=== PATIENT | male | born 1985 | race Caucasian/White ===

== ENCOUNTER 2019-07-18 08:22 | Day surgery (SDC) | payer BC ==
[~2019-07-18 08:22] MED LIST: Glycopyrrolate 0.2 MG/ML SDV ONE; Lactated Ringers 1,000 ML IV SCH; Lidocaine 2% 5 ML SDV ONE; Midazolam 1 MG/ML 2 ML SDV ONE; Neostigmine Methylsulfate 1 MG/ML 5 ML Syringe ONE; Ondansetron 4 MG/2 ML SDV ONE; Propofol 200 MG/20 ML SDV ONE; Rocuronium 100 MG/10 ML Syringe ONE; ceFAZolin 2 GM in Premix Bag 1 BAG IV ONE; fentaNYL 250 MCG/5 ML SDV ONE
[2019-07-18] MEDS ORDERED: Scopolamine 1.5 MG Transdermal Patch TRDERM PRN (08:46)
--- NOTE | 2019-07-18 08:50 | PCM.PREANE ---
Preanesthetic Assessment - Anesthesia/Transfusion/Family Hx Anesthesia History: Prior Anesthesia Without Reaction Family History of Anesthesia Reaction: No Transfusion History: No Prior Transfusion(s) - Review of Systems General: No Symptoms Pulmonary: No Symptoms Cardiovascular: No Symptoms Gastrointestinal: No Symptoms Neurological: No Symptoms Other: Reports: None - Physical Assessment Height: 5 ft 11 in Weight: 115.666 kg ASA Class: 1 (PMH: nonePLAN:) Mental Status: Alert & Oriented x3 Airway Class: Mallampati = 2 Dentition: Reports: Bridge (central maxillary incisors) ROM/Head Extension: Full Lungs: Clear to Auscultation, Normal Respiratory Effort Cardiovascular: Regular Rate, Regular Rhythm - Allergies Allergies/Adverse Reactions: Allergies Allergy/AdvReac Type Severity Reaction Status Date / Time sulfamethoxazole Allergy Anaphylactic Verified 07/17/19 16:27 [From Bactrim] Shock trimethoprim [From Bactrim] Allergy Anaphylactic Verified 07/17/19 16:27 Shock - Blood Blood Available: No - Anesthesia Plan Pre-Op Medication Ordered: None, Other (scop patch) - Acknowledgements Anesthesia Type Planned: General Anesthesia Pt an Appropriate Candidate for the Planned Anesthesia: Yes Alternatives and Risks of Anesthesia Discussed w Pt/Guardian: Yes Pt/Guardian Understands and Agrees with Anesthesia Plan: Yes Additional Comments: PMH: none PLAN: get, caution with dental bridge of central incisors PreAnesthesia Questionnaire HEENT History: Reports: Other (See Below) Other HEENT History: has upper permanent bridge Genitourinary History: Reports: Renal Calculus Other Genitourinary History: passed kidney stones Endocrine/Metabolic History: Reports: Obesity/BMI 30+ - Past Surgical History Head Surgeries/Procedures: Reports: None - SUBSTANCE USE Smoking Status *Q: Former Smoker Tobacco Use Within Last Twelve Months: Cigarettes Recreational Drug Use History: No - HOME MEDS Home Medications: Home Meds . [No Known Home Meds] 07/17/19 [History] - CURRENT (IN HOUSE) MEDS Current Meds: Current Medications Lactated Ringer's (Ringers, Lactated) 1,000 mls @ 125 mls/hr IV ASDIRECTED TOMER Scopolamine (Transderm-Scop) 1.5 mg TRDERM Q72H PRN PRN Reason: Nausea/Vomiting Discontinued Medications Fentanyl (Sublimaze) Confirm Administered Dose 250 mcg .ROUTE .STK-MED ONE Stop: 07/18/19 08:12 Glycopyrrolate (Robinul) Confirm Administered Dose 0.4 mg .ROUTE .STK-MED ONE Stop: 07/18/19 08:11 Cefazolin Sodium/Dextrose 2 gm (/ Premix) 50 mls @ 100 mls/hr IV ONETIME ONE Stop: 07/18/19 05:29 Lidocaine (Xylocaine-Mpf 2%) Confirm Administered Dose 5 ml .ROUTE .STK-MED ONE Stop: 07/18/19 08:11 Midazolam HCl (Versed 1 Mg/Ml) Confirm Administered Dose 2 mg .ROUTE .STK-MED ONE Stop: 07/18/19 08:12 Neostigmine Methylsulfate (Neostigmine) Confirm Administered Dose 5 mg .ROUTE .STK-MED ONE Stop: 07/18/19 08:11 Ondansetron HCl (Zofran) Confirm Administered Dose 4 mg .ROUTE .STK-MED ONE Stop: 07/18/19 08:11 Propofol (Diprivan 20 Ml) Confirm Administered Dose 200 mg .ROUTE .STK-MED ONE Stop: 07/18/19 08:12 Rocuronium [place] (Zemuron) Confirm Administered Dose 100 mg .ROUTE .STK-MED ONE Stop: 07/18/19 08:12
[2019-07-18] MEDS ORDERED: Bupivacaine 25%/EPINEPHrine/PF 30 ML ONE (10:01)
[2019-07-18] MEDS ORDERED: Octyl 2-Cyanoacrylate 1 Tube ONE (10:02)
[2019-07-18] MEDS ORDERED: Acetaminophen/oxyCODONE 325-5 MG Tab PO PRN (10:25)
[2019-07-18] MEDS ORDERED: ceFAZolin/Dextrose,Iso-Osmotic 2 GM/50 ML Duplex Bag IV ONE (10:40)
[2019-07-18] MEDS ORDERED: Ketamine 500 mg/10 ML MDV ONE (10:41)
[2019-07-18] MEDS ORDERED: Dexamethasone 4 MG/ML 5 ML MDV ONE (10:47)
[2019-07-18] MEDS ORDERED: Naloxone 0.4 MG/ML Syringe IVPUSH PRN (11:05)
[2019-07-18] MEDS ORDERED: Atropine 0.1 MG/ML 10 ML Syringe IVPUSH PRN ×2 (11:05)
[2019-07-18] MEDS ORDERED: 50% Dextrose in Water 50 ML Syringe IVPUSH PRN (11:05)
[2019-07-18] MEDS ORDERED: EPINEPHrine 1:10,000 1 MG/10 ML Syringe IVPUSH PRN (11:05)
--- NOTE | 2019-07-18 12:05 | PCM.OPNOTE ---
- General Post-Op/Procedure Note Date of Surgery/Procedure: 07/18/19 Operative Procedure(s): lap mick Findings: gb yellow and green, wall is not thickened; surgicell used at the end of procedure for hemostasis; [id number] Pre Op Diagnosis: biliary dyskinesia Post-Op Diagnosis: Same Anesthesia Technique: General ET Tube Primary Surgeon: Servando Pierce Pathology: sent Complications: None Condition: Good
[2019-07-18] MEDS ORDERED: fentaNYL 100 MCG/2 ML SDV ONE (12:06)
[2019-07-18] MEDS: fentaNYL 100 MCG/2 ML SDV IVPUSH PRN ×2 (12:09→12:17)
[2019-07-18] MEDS: HYDROmorphone 2 MG/ML Syringe IVPUSH PRN ×4 (12:15→12:45)
--- NOTE | 2019-07-18 12:41 | PCM.POSTAN ---
POST ANESTHESIA ASSESSMENT - MENTAL STATUS Mental Status: Alert, Oriented - VITAL SIGNS Vital Signs: Last Vital Signs Temp 99.3 F 07/18/19 11:44 Pulse 66 07/18/19 12:35 Resp 12 07/18/19 12:35 BP 113/63 07/18/19 12:35 Pulse Ox 97 07/18/19 12:35 - RESPIRATORY Respiratory Status: Respiratory Rate WNL, Airway Patent, O2 Saturation Stable - CARDIOVASCULAR CV Status: Pulse Rate WNL, Blood Pressure Stable - GASTROINTESTINAL GI Status: No Symptoms - POST OP HYDRATION Hydration Status: Adequate & Stable
--- NOTE | 2019-07-18 13:07 | PCM48HPAN ---
Post Anesthesia Note - EVALUATION WITHIN 48HRS OF ANESTHETIC Vital Signs in Normal Range: Yes Patient Participated in Evaluation: Yes Respiratory Function Stable: Yes Airway Patent: Yes Cardiovascular Function Stable: Yes Hydration Status Stable: Yes Pain Control Satisfactory: Yes Nausea and Vomiting Control Satisfactory: Yes Mental Status Recovered: Yes Vital Signs: Last Vital Signs Temp 99.3 F 07/18/19 11:44 Pulse 61 07/18/19 12:47 Resp 14 07/18/19 12:47 BP 113/62 07/18/19 12:47 Pulse Ox 96 07/18/19 12:47
--- NOTE | 2019-07-18 13:28 | OR ---
SURGEON: Servando Pierce MD DATE OF PROCEDURE: 07/18/2019 PREOPERATIVE DIAGNOSIS: Biliary dyskinesia. POSTOPERATIVE DIAGNOSIS: Biliary dyskinesia. PROCEDURE PROPOSED: Laparoscopic cholecystectomy. PROCEDURE PERFORMED: Laparoscopic cholecystectomy. PRIMARY SURGEON: Servando Pierce MD. COMPLICATIONS: None. FINDINGS: Gallbladder was yellow and green. Wall was not thickened. Consistent with chronic cholecystitis. Surgicel used at end of procedure for hemostasis. PROCEDURE NOTE: The patient was taken to the operating room and placed in the supine position. After the intubation of general endotracheal anesthesia, the patient's abdomen was prepped and draped in the usual sterile fashion. Using [employer], a 12 mm trocar was placed supraumbilically and then followed with pneumoperitoneum. A 5 mm trocar was placed in the epigastrium and two 5 mm trocars placed in the right upper quadrant. The placement of the last three trocars was done under direct video supervision. Upon gaining entrance to the abdominal cavity, an extensive examination was then performed. The gallbladder was located and identified and retracted to the dome of the liver at the triangle of Calot. The cystic duct was clipped three more times and then using the endoscopic clip, was transected with placement of the endoscopic clip and transection was performed with care, ensuring the posterior prong of the instruments were clearly visualized prior to exercising the procedure. The gallbladder was dissected using electrocautery out of the liver bed and then removed using endoscopic bag through the umbilical site. The gallbladder was removed en bloc and there was no bile spillage and this was then followed with extensive irrigation until the bile was clear from blood and bile. The trocars were then removed under direct video supervision. The 12 mm umbilical site was then closed with deep stitches using 0 Vicryl followed with proximal stitches using 3-0 Vicryl and Dermabond. The other three trocar sites were closed with 3-0 Vicryl followed with approximation of skin with Dermabond. The patient was then awakened and extubated and transferred to the recovery room in hemodynamically stable condition. At the conclusion of the surgery, before closing the abdomen, a piece of Surgicel was inserted for hemostasis. Instrument count and sponge count were done and were correct. The patient tolerated the procedure well and there were no intraoperative complications. Dr. Pierce was present through the whole procedure. Just before surgery, a timeout was called. The patient was identified and procedure identified and procedure started. Intraoperative finding as dictated above. SACHIN / TERESA /[id number]
== END 2019-07-18 13:40 | disposition home or self-care (01) ==
LOC: MW.SDS 08:22
PROVIDERS: ATTEND Surgery
DX: K81.1 Chronic cholecystitis (principal); K82.8 Other specified diseases of gallbladder; E66.9 Obesity, unspecified; Z68.35 Body mass index [BMI] 35.0-35.9, adult; Z87.891 Personal history of nicotine dependence; Z88.2 Allergy status to sulfonamides
CPT/HCPCS: 47562; 88304; A9270; J0131; J0690; J1100; J1170; J2001; J2250; J2405; J2704; J3010; J3490; J7120

== ENCOUNTER 2019-08-23 11:14 | Emergency (ER) | payer BC ==
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
== END 2019-08-23 12:15 | disposition home or self-care (01) ==
LOC: MW.ED 11:14
DX: T18.8XXA Foreign body in other parts of alimentary tract, initial encounter (principal); F17.210 Nicotine dependence, cigarettes, uncomplicated; E66.9 Obesity, unspecified; Z68.33 Body mass index [BMI] 33.0-33.9, adult; Z88.1 Allergy status to other antibiotic agents
CPT/HCPCS: 99283